=== PATIENT | male | born 1995 | race Caucasian/White ===

== ENCOUNTER 2023-06-23 16:38 | Emergency (ER) | payer OTHER ==
[~2023-06-23] VITALS: Ht 180.3 cm; Wt 82.6 kg
[2023-06-23] MEDS ORDERED: TETRACAINE HCL ONE (16:42)
[2023-06-23] MEDS ORDERED: FUL-GLO OP ONE (16:48)
[2023-06-23 16:50] VITALS: BP 147/83; PULSE 86; RESP 18; TEMP 98.1; O2SAT 99
== END 2023-06-23 17:06 | disposition home or self-care (01) ==
LOC: ER 16:38
DX: S05.02XA Injury of conjunctiva and corneal abrasion without foreign body, left eye, initial encounter (principal); X58.XXXA Exposure to other specified factors, initial encounter; Y93.89 Activity, other specified; Y92.89 Other specified places as the place of occurrence of the external cause; Y99.8 Other external cause status
CPT/HCPCS: 99283